=== PATIENT | male | born 1990 | race Caucasian/White ===

== ENCOUNTER 2019-01-07 14:56 | Emergency (ER) | payer OTHER, MEDICAID ==
[~2019-01-07] VITALS: Ht 180.3 cm; Wt 104.3 kg
[2019-01-07 15:00] VITALS: BP 139/84
== END 2019-01-07 15:54 | disposition home or self-care (01) ==
LOC: ER 14:56
DX: H66.92 Otitis media, unspecified, left ear (principal)

== ENCOUNTER 2019-07-25 12:25 | Emergency (ER) | payer OTHER ==
[~2019-07-25] VITALS: Ht 180.3 cm; Wt 108.9 kg
[2019-07-25 12:57] VITALS: BP 115/55
== END 2019-07-25 14:24 | disposition left against medical advice (07) ==
LOC: ER 12:25
DX: Z00.00 Encounter for general adult medical examination without abnormal findings (principal); Z53.29 Procedure and treatment not carried out because of patient's decision for other reasons